=== PATIENT | male | born 1950 | race Caucasian/White ===

== ENCOUNTER 2020-07-19 07:44 | Day surgery (SDC) | payer MEDICARE ==
[~2020-07-19] VITALS: Ht 182.9 cm; Wt 101.5 kg
[~2020-07-19 07:44] MED LIST: ACET325 PO; MELO7.5 PO; Synthroid175 MCG PO
== END 2020-07-19 10:22 | disposition home or self-care (01) ==
LOC: ORSCSDS 07:44
PROVIDERS: Internal Medicine Gastroenterology
PROC: 0DBL8ZX Excision of Transverse Colon, Via Natural or Artificial Opening Endoscopic, Diagnostic (ICD-10-PCS; principal; 2020-07-19 09:00)
DX: Z12.11 Encounter for screening for malignant neoplasm of colon (principal); Z86.010 Personal history of colon polyps; D12.3 Benign neoplasm of transverse colon; K64.8 Other hemorrhoids; Z79.899 Other long term (current) drug therapy
CPT/HCPCS: 88305; J2704; J7120

== ENCOUNTER → 2022-06-12 | Outpatient (CLI) | payer MEDICARE ==
[2022-06-12 15:46] LABS: U Amphetamine Screen Not Detected; U Barbituate Screen Not Detected; U Benzodiazapine Screen Not Detected; U Buprenorphine Screen Not Detected; U Cannabinoids Screen Not Detected; U Cocaine Screen Not Detected; U Methadone Screen Not Detected; U Methamphetamine Screen Not Detected; U Opiates Screen DETECTED; U Oxycodone Screen DETECTED; U Phencyclidine Screen Not Detected; U Propoxyphene Screen Not Detected
== END | disposition home or self-care (01) ==
LOC: LAB SHORT 13:38 → LAB 13:38
PROVIDERS: Internal Medicine Hematology & Oncology
DX: Z51.81 Encounter for therapeutic drug level monitoring (principal); Z79.899 Other long term (current) drug therapy

== ENCOUNTER → 2022-07-14 | Outpatient (CLI) | payer MEDICARE ==
[2022-07-14 13:47] LABS: U Amphetamine Screen Not Detected; U Barbituate Screen Not Detected; U Benzodiazapine Screen Not Detected; U Buprenorphine Screen Not Detected; U Cannabinoids Screen DETECTED; U Cocaine Screen Not Detected; U Methadone Screen Not Detected; U Methamphetamine Screen Not Detected; U Opiates Screen DETECTED; U Oxycodone Screen DETECTED; U Phencyclidine Screen Not Detected; U Propoxyphene Screen Not Detected
[2022-07-14 18:57] LABS: Alanine Aminotransfer (ALT/SGP 21 U/L (12-78); Albumin, Blood 3.9 g/dL (3.4-5.0); Albumin/Globulin Ratio 1.7 (0.8-1.8); Alk Phos 69 U/L (50-136); Anion Gap 5 mmol/L (6-16); Aspartate Aminotrans (AST/SGOT 13 U/L (12-37); Bilirubin, Total 0.4 mg/dL (0.1-1.0); Blood Urea Nitrogen 17 mg/dL (8-24); Bun/Creatinine Ratio 21.7 (12.0-20.0); CO2, Blood 27 mmol/L (21-32); Calcium, Blood 8.8 mg/dL (8.5-10.1); Chloride, Blood 109 mmol/L (98-108); Creatinine, Blood 0.79 mg/dL (0.60-1.20); Globulin, Blood 2.3 g/dL (2.2-4.0); Glomerular Filtration Rate 96 (60-); Glucose, Blood 106 mg/dL (70-99); Phosphorus, Blood 3.4 mg/dL (2.5-4.9); Sodium, Blood 141 mmol/L (136-145); Thyroid Stimulating Hormone 0.028 uIU/mL (0.360-4.800); Thyroxine (T4) 11.7 ug/dL (4.5-12.1); Total Protein, Blood 6.2 g/dL (6.4-8.2)
== END | disposition home or self-care (01) ==
LOC: LAB SHORT 12:55
PROVIDERS: Internal Medicine Hematology & Oncology
DX: Z12.5 Encounter for screening for malignant neoplasm of prostate (principal); R63.4 Abnormal weight loss; Z85.850 Personal history of malignant neoplasm of thyroid; Z79.899 Other long term (current) drug therapy
CPT/HCPCS: 80053; 84100; 84436; 84443; G0103

== ENCOUNTER → 2022-08-14 | Outpatient (CLI) | payer OTHER ==
[2022-08-14 17:06] LABS: U Amphetamine Screen Not Detected; U Barbituate Screen Not Detected; U Benzodiazapine Screen Not Detected; U Buprenorphine Screen Not Detected; U Cannabinoids Screen DETECTED; U Cocaine Screen Not Detected; U Methadone Screen Not Detected; U Methamphetamine Screen Not Detected; U Opiates Screen DETECTED; U Oxycodone Screen Not Detected; U Phencyclidine Screen Not Detected; U Propoxyphene Screen Not Detected
== END | disposition home or self-care (01) ==
LOC: LAB SHORT 15:22 → LAB 15:22
PROVIDERS: Internal Medicine Hematology & Oncology
DX: Z51.81 Encounter for therapeutic drug level monitoring (principal); Z79.899 Other long term (current) drug therapy

== ENCOUNTER → 2022-10-12 | Outpatient (CLI) | payer OTHER ==
[2022-10-12 15:56] LABS: U Amphetamine Screen Not Detected; U Barbituate Screen Not Detected; U Benzodiazapine Screen Not Detected; U Buprenorphine Screen Not Detected; U Cannabinoids Screen Not Detected; U Cocaine Screen Not Detected; U Methadone Screen Not Detected; U Methamphetamine Screen Not Detected; U Opiates Screen Not Detected; U Oxycodone Screen DETECTED; U Phencyclidine Screen Not Detected; U Propoxyphene Screen Not Detected
== END | disposition home or self-care (01) ==
LOC: LAB 11:55 → LAB SHORT 11:55
PROVIDERS: Internal Medicine Hematology & Oncology
DX: Z51.81 Encounter for therapeutic drug level monitoring (principal); Z79.899 Other long term (current) drug therapy

== ENCOUNTER → 2022-11-11 | Outpatient (CLI) | payer OTHER ==
[2022-11-11 19:18] LABS: U Amphetamine Screen Not Detected; U Barbituate Screen Not Detected; U Benzodiazapine Screen Not Detected; U Buprenorphine Screen Not Detected; U Cannabinoids Screen Not Detected; U Cocaine Screen Not Detected; U Methadone Screen Not Detected; U Methamphetamine Screen Not Detected; U Opiates Screen DETECTED; U Oxycodone Screen Not Detected; U Phencyclidine Screen Not Detected; U Propoxyphene Screen Not Detected
== END | disposition home or self-care (01) ==
LOC: LAB 11:10 → LAB SHORT 11:10
PROVIDERS: Internal Medicine Hematology & Oncology
DX: Z51.81 Encounter for therapeutic drug level monitoring (principal); Z79.899 Other long term (current) drug therapy

== ENCOUNTER → 2023-01-14 | Outpatient (CLI) | payer OTHER ==
[2023-01-14 14:16] LABS: U Cannabinoids Screen DETECTED
[2023-01-14 14:17] LABS: U Amphetamine Screen Not Detected; U Barbituate Screen Not Detected; U Benzodiazapine Screen Not Detected; U Buprenorphine Screen Not Detected; U Cocaine Screen Not Detected; U Methadone Screen Not Detected; U Methamphetamine Screen Not Detected; U Opiates Screen DETECTED; U Oxycodone Screen DETECTED; U Phencyclidine Screen Not Detected; U Propoxyphene Screen Not Detected
[2023-01-17 16:08] LABS: CARBOXY-THC 28 (.)
== END | disposition home or self-care (01) ==
LOC: LAB 13:01 → LAB SHORT 13:01
PROVIDERS: Internal Medicine Hematology & Oncology
DX: Z51.81 Encounter for therapeutic drug level monitoring (principal); Z79.899 Other long term (current) drug therapy
CPT/HCPCS: G0480

== ENCOUNTER → 2023-02-11 | Outpatient (CLI) | payer OTHER ==
[2023-02-11 14:45] LABS: U Amphetamine Screen Not Detected; U Barbituate Screen Not Detected; U Benzodiazapine Screen Not Detected; U Buprenorphine Screen Not Detected; U Cannabinoids Screen DETECTED; U Cocaine Screen Not Detected; U Methadone Screen Not Detected; U Methamphetamine Screen Not Detected; U Opiates Screen DETECTED; U Oxycodone Screen Not Detected; U Phencyclidine Screen Not Detected; U Propoxyphene Screen Not Detected
[2023-02-20 12:12] LABS: 6-ACETYLMORPHINE Not Detected (.); CARBOXY-THC 51 (.)
== END ==
LOC: LAB 10:25 → LAB SHORT 10:25
PROVIDERS: Internal Medicine Hematology & Oncology
DX: Z51.81 Encounter for therapeutic drug level monitoring (principal); Z79.899 Other long term (current) drug therapy
CPT/HCPCS: G0480

== ENCOUNTER → 2023-06-02 | Outpatient (CLI) | payer OTHER ==
[2023-06-02 14:30] LABS: U Amphetamine Screen Not Detected; U Barbituate Screen Not Detected; U Benzodiazapine Screen Not Detected; U Buprenorphine Screen Not Detected; U Cannabinoids Screen Not Detected; U Cocaine Screen Not Detected; U Methadone Screen Not Detected; U Methamphetamine Screen Not Detected; U Opiates Screen DETECTED; U Oxycodone Screen Not Detected; U Phencyclidine Screen Not Detected
== END | disposition home or self-care (01) ==
LOC: LAB 13:03 → LAB SHORT 13:03
PROVIDERS: Internal Medicine Hematology & Oncology
DX: Z51.81 Encounter for therapeutic drug level monitoring (principal); Z79.899 Other long term (current) drug therapy
CPT/HCPCS: G0480

== ENCOUNTER → 2023-06-30 | Outpatient (CLI) | payer OTHER ==
[2023-06-30 15:47] LABS: U Amphetamine Screen Not Detected; U Barbituate Screen Not Detected; U Benzodiazapine Screen Not Detected; U Buprenorphine Screen Not Detected; U Cannabinoids Screen Not Detected; U Cocaine Screen Not Detected; U Methadone Screen Not Detected; U Methamphetamine Screen Not Detected; U Opiates Screen DETECTED; U Oxycodone Screen Not Detected; U Phencyclidine Screen Not Detected
== END | disposition home or self-care (01) ==
LOC: LAB 10:06 → LAB SHORT 10:06
PROVIDERS: Internal Medicine Hematology & Oncology
DX: Z51.81 Encounter for therapeutic drug level monitoring (principal); Z79.899 Other long term (current) drug therapy

== ENCOUNTER → 2023-07-28 | Outpatient (CLI) | payer OTHER ==
[2023-07-28 14:18] LABS: U Amphetamine Screen Not Detected; U Barbituate Screen Not Detected; U Benzodiazapine Screen Not Detected; U Cocaine Screen Not Detected; U Methamphetamine Screen Not Detected
[2023-07-28 14:19] LABS: U Buprenorphine Screen Not Detected; U Cannabinoids Screen DETECTED; U Methadone Screen Not Detected; U Opiates Screen DETECTED; U Oxycodone Screen Not Detected; U Phencyclidine Screen Not Detected
== END | disposition home or self-care (01) ==
LOC: LAB 12:54 → LAB SHORT 12:54
PROVIDERS: Internal Medicine Hematology & Oncology
DX: Z51.81 Encounter for therapeutic drug level monitoring (principal); Z79.899 Other long term (current) drug therapy

== ENCOUNTER → 2023-08-25 | Outpatient (CLI) | payer OTHER ==
[2023-08-25 14:38] LABS: U Cannabinoids Screen DETECTED; U Opiates Screen DETECTED
[2023-08-25 14:39] LABS: U Amphetamine Screen Not Detected; U Barbituate Screen Not Detected; U Benzodiazapine Screen Not Detected; U Buprenorphine Screen Not Detected; U Cocaine Screen Not Detected; U Methadone Screen Not Detected; U Methamphetamine Screen Not Detected; U Oxycodone Screen Not Detected; U Phencyclidine Screen Not Detected
== END ==
LOC: LAB 12:57 → LAB SHORT 12:57
PROVIDERS: Internal Medicine Hematology & Oncology
DX: M54.16 Radiculopathy, lumbar region (principal); Z79.899 Other long term (current) drug therapy

== ENCOUNTER → 2023-11-18 | Outpatient (CLI) | payer OTHER | LOC: LAB 09:53 → LAB SHORT 09:53 | DX: M51.36 Other intervertebral disc degeneration, lumbar region (principal); Z79.899 Other long term (current) drug therapy ==

== ENCOUNTER → 2024-01-18 | Outpatient (CLI) | payer OTHER ==
[2024-01-18 15:25] LABS: U Amphetamine Screen Not Detected; U Barbituate Screen Not Detected; U Benzodiazapine Screen Not Detected; U Buprenorphine Screen Not Detected; U Cannabinoids Screen Not Detected; U Cocaine Screen Not Detected; U Methadone Screen Not Detected; U Methamphetamine Screen Not Detected; U Opiates Screen DETECTED; U Oxycodone Screen Not Detected; U Phencyclidine Screen Not Detected
== END ==
LOC: LAB SHORT 14:42 → LAB 14:42
PROVIDERS: Internal Medicine Hematology & Oncology
DX: M54.16 Radiculopathy, lumbar region (principal); Z79.899 Other long term (current) drug therapy

== ENCOUNTER → 2024-03-16 | Outpatient (CLI) | payer OTHER ==
[2024-03-16 14:23] LABS: U Amphetamine Screen Not Detected; U Barbituate Screen Not Detected; U Benzodiazapine Screen Not Detected; U Buprenorphine Screen Not Detected; U Cannabinoids Screen Not Detected; U Cocaine Screen Not Detected; U Methadone Screen Not Detected; U Methamphetamine Screen Not Detected; U Opiates Screen DETECTED; U Oxycodone Screen Not Detected; U Phencyclidine Screen Not Detected
== END | disposition home or self-care (01) ==
LOC: LAB 09:32 → LAB SHORT 09:32
PROVIDERS: Internal Medicine Hematology & Oncology
DX: Z51.81 Encounter for therapeutic drug level monitoring (principal); Z79.899 Other long term (current) drug therapy

== ENCOUNTER → 2024-06-14 | Outpatient (CLI) | payer OTHER ==
[2024-06-14 15:20] LABS: U Amphetamine Screen Not Detected; U Barbituate Screen Not Detected; U Benzodiazapine Screen Not Detected; U Buprenorphine Screen Not Detected; U Cannabinoids Screen Not Detected; U Cocaine Screen Not Detected; U Methadone Screen Not Detected; U Methamphetamine Screen Not Detected; U Opiates Screen DETECTED; U Oxycodone Screen Not Detected; U Phencyclidine Screen Not Detected
== END | disposition home or self-care (01) ==
LOC: LAB SHORT 10:20 → LAB 10:20
PROVIDERS: Internal Medicine Hematology & Oncology
DX: Z51.81 Encounter for therapeutic drug level monitoring (principal); Z79.899 Other long term (current) drug therapy

== ENCOUNTER → 2024-07-20 | Outpatient (CLI) | payer OTHER ==
[2024-07-20 14:42] LABS: U Amphetamine Screen Not Detected; U Barbituate Screen Not Detected; U Benzodiazapine Screen Not Detected; U Buprenorphine Screen Not Detected; U Cannabinoids Screen Not Detected; U Cocaine Screen Not Detected; U Methadone Screen Not Detected; U Methamphetamine Screen Not Detected; U Opiates Screen DETECTED; U Oxycodone Screen DETECTED; U Phencyclidine Screen Not Detected
== END ==
LOC: LAB 10:15 → LAB SHORT 10:15
PROVIDERS: Internal Medicine Hematology & Oncology
DX: M54.16 Radiculopathy, lumbar region (principal); Z79.899 Other long term (current) drug therapy

== ENCOUNTER 2024-10-23 08:09 | Day surgery (SDC) | payer OTHER ==
[~2024-10-23] VITALS: Ht 182.9 cm; Wt 93.0 kg
[2024-10-23] VITALS (10 sets, daily range): BP systolic 116–135; BP diastolic 63–88
[~2024-10-23 08:09] MED LIST changes: +Norco 7.5-3251 EACH PO
[2024-10-23] MEDS ORDERED: Promethazine HCl 25 MG Tab PO PRN (08:35)
[2024-10-23] MEDS ORDERED: DiphenhydrAMINE HCL 25 MG Cap PO PRN (08:35)
[2024-10-23] MEDS ORDERED: Prochlorperazine Edisylate 10 mg Vial IV PRN (08:35)
[2024-10-23] MEDS ORDERED: OxyCODONE HCL 5 MG TAB PO PRN ×2 (08:35)
[2024-10-23] MEDS ORDERED: Magnesium Hydroxide Conc 10 ML UDC PO PRN (08:40)
[2024-10-23] MEDS ORDERED: Bisacodyl 10 MG Supp PR PRN (08:40)
[2024-10-23] MEDS ORDERED: Metoclopramide HCl 5MG / ML 2ML Vial IV PRN (08:40)
[2024-10-23] MEDS ORDERED: HYDROmorphone HCl/Pf 1MG SYR IV PRN ×3 (08:45→10:45)
[2024-10-23] MEDS ORDERED: Ondansetron HCl 2 MG / ML 2ML Vial IV PRN ×2 (08:45→10:50)
[2024-10-23] MEDS ORDERED: Lactated Ringer's 1,000 ML IV SCH ×2 (08:50→09:00)
[2024-10-23] MEDS ORDERED: CeFAZolin Sodium 2,000 MG in NS 100 ML IV SCH ×2 (08:55→18:00)
[2024-10-23] MEDS ORDERED: Chlorhexidine Mouth Care 15 ML UDC MT SCH (09:00)
[2024-10-23] MEDS ORDERED: OxyCODONE HCL 10 MG TABCR PO SCH (09:00)
[2024-10-23] MEDS ORDERED: Ropivacaine 0.5% HCl/Pf 123.125 MG,EPINEPHrine HCL 0.25 MG,Ketorolac Tromethamine 15 MG... INFIL SCH (09:00)
[2024-10-23] MEDS ORDERED: Acetaminophen 500 MG Tab PO SCH ×2 (09:00→16:00)
--- NOTE | 2024-10-23 09:00 | NUR ---
Ambulatory in Day Surgery WITH BY SELF. History, Chart, Medications and Allergies reviewed before start of procedure.Patient confirms NPO status and agrees with scheduled surgery. Pre-Op teaching done. Pt verbalizes understanding. Lungs clear T/O to Auscultation.
[2024-10-23] MEDS ORDERED: Tranexamic Acid 100 ML IV SCH (09:03)
[2024-10-23] MEDS ORDERED: FentaNYL Citrate 50 MCG/ML 2 ML Injection ONE (09:14)
[2024-10-23] MEDS ORDERED: Midazolam HCl 1MG / ML 2ML Vial ONE ×3 (09:15→11:31)
[2024-10-23] MEDS ORDERED: propofoL 40 ML IV ONE (10:23)
[2024-10-23] MEDS ORDERED: Phenylephrine HCl 100 MCG/ML-NS 10MLSYR (1MG/10ML) ONE (10:28)
[2024-10-23] MEDS ORDERED: Ondansetron HCl 2 MG / ML 2ML Vial ONE (10:28)
[2024-10-23] MEDS ORDERED: FentaNYL Citrate 50 MCG/ML 2 ML Injection IV PRN ×2 (10:50)
[2024-10-23] MEDS ORDERED: Labetalol HCL 5 MG/ML 4ML Injection (Single Dose) IV PRN (10:50)
[2024-10-23] MEDS ORDERED: ePHEDrine Sulfate 50 MG/ML 1ML Injection IV PRN (10:50)
[2024-10-23] MEDS ORDERED: FentaNYL Citrate 50 MCG/ML 5 ML Injection ONE (11:30)
[2024-10-23] MEDS ORDERED: Ketorolac Tromethamine 15mg Vial IV SCH (12:00)
[2024-10-23] MEDS ORDERED: Ketorolac Tromethamine 30mg Vial ONE (12:28)
--- NOTE | 2024-10-23 12:59 | NUR ---
ARRIVAL TO UNIT AFTER RECEIVING REPORT FROM SPA ASSISTANT MANAGER, PATIENT TRANSFERRED TO UNIT VIA BED AT APPROX 1245. PATIENT ALERT - COMMUNICATING NEEDS EFFECTIVELY. S/P R CAROLYN W/ SPINAL - REPORTS SENSATION, IS ABLE TO WIGGLE TOES. PPP. CAP REFILL <3 SECONDS. VSS. ON ROOM AIR, SATs >90%. DENIES PAIN. PRINEO DX C/D/I. DENIES N/V - TOLERATING PO INTAKE. CALL LIGHT IN REACH.
[2024-10-23] MEDS ORDERED: ACET500 PO (15:58)
[2024-10-23] MEDS ORDERED: DOCU100 PO (15:59)
[2024-10-23] MEDS ORDERED: ASPI81CH PO (16:00)
[2024-10-23] MEDS ORDERED: OXAYDO5 M1 PO (16:01)
--- NOTE | 2024-10-23 16:39 | NUR ---
DISCHARGE NOTE NO ACUTE CHANGES SINCE ARRIVAL TO UNIT. PATIENT REMAINS ALERT - COMMUNICATING NEEDS EFFECTIVEY. S/P R CAROLYN - AMBULATING WITH SBA FWW GB. WORKED WITH PHYSICAL THERAPY THIS AFTERNOON. VSS. PAIN MANAGED WITH PRESCRIBED THERAPY. TOLERATING PO INTAKE. VOIDING. PRINEO DX TO R HIP C/D/I. IV REMOVED. WRITTEN AND VERBAL EDUCATION PROVIDED - BOTH PATIENT AND SPOUSE STATE UNDERSTANDING. PERSONAL BELONGINGS WITH PATIENT. PATIENT TRANSFERRED TO PERSONAL VEHICLE VIA AT APPROX 1630.
[2024-10-23] MEDS ORDERED: Docusate Sodium 100 MG Cap PO SCH (21:00)
[2024-10-24] MEDS ORDERED: Aspirin 81 MG Chew PO SCH (09:00)
== END 2024-10-23 16:34 | disposition home or self-care (01) ==
LOC: ORSCMMR 08:09 → ORD 09:30 → ORSCMMR 09:30 → SURS 12:34 → ORSCMMR 16:34
PROVIDERS: Orthopaedic Surgery
PROC: 0SR90JA Replacement of Right Hip Joint with Synthetic Substitute, Uncemented, Open Approach (ICD-10-PCS; principal; 2024-10-23 09:30)
DX: M16.11 Unilateral primary osteoarthritis, right hip (principal); Z85.850 Personal history of malignant neoplasm of thyroid; Z79.899 Other long term (current) drug therapy; F17.220 Nicotine dependence, chewing tobacco, uncomplicated
CPT/HCPCS: 72170; 97110; 97116; 97162; A9270; C1776; J0171; J0690; J0735; J1885; J2250; J2371; J2405; J2704; J2795; J3010; J7120

== ENCOUNTER → 2025-04-12 | Outpatient (CLI) | payer OTHER ==
[~2025-04-12] MED LIST changes: +ACET500 PO; +ASPI81CH PO; +DOCU100 PO; +OXAYDO5 M1 PO
[2025-04-12 15:51] LABS: U Amphetamine Screen Not Detected; U Barbituate Screen Not Detected; U Benzodiazapine Screen Not Detected; U Buprenorphine Screen Not Detected; U Cannabinoids Screen Not Detected; U Cocaine Screen Not Detected; U Methadone Screen Not Detected; U Methamphetamine Screen Not Detected; U Opiates Screen DETECTED; U Oxycodone Screen Not Detected; U Phencyclidine Screen Not Detected
== END ==
LOC: LAB 13:29 → LAB SHORT 13:29
PROVIDERS: Internal Medicine Hematology & Oncology
DX: Z51.81 Encounter for therapeutic drug level monitoring (principal); Z79.899 Other long term (current) drug therapy; M54.16 Radiculopathy, lumbar region

== ENCOUNTER 2025-06-11 10:02 | Day surgery (SDC) | payer OTHER ==
[~2025-06-11] VITALS: Ht 182.9 cm; Wt 95.9 kg
[2025-06-11] VITALS (9 sets, daily range): BP systolic 107–151; BP diastolic 55–74
[~2025-06-11 10:02] MED LIST changes: +Norco 5-325 Ta1 EACH PO
[2025-06-11] MEDS ORDERED: CeFAZolin Sodium 2,000 MG in NS 100 ML IV SCH ×2 (10:20→21:00)
[2025-06-11] MEDS ORDERED: Chlorhexidine Mouth Care 15 ML UDC MT SCH (10:20)
[2025-06-11] MEDS ORDERED: Tranexamic Acid 100 ML IV SCH (10:20)
[2025-06-11] MEDS ORDERED: FLU VACC TS2025(65UP)/MF59C/PF 45 MCG/0.5 ML SYRINGE IM SCH (11:35)
[2025-06-11] MEDS ORDERED: Prochlorperazine Edisylate 10 mg Vial IV PRN (11:40)
[2025-06-11] MEDS ORDERED: Magnesium Hydroxide Conc 10 ML UDC PO PRN (11:40)
[2025-06-11] MEDS ORDERED: Metoclopramide HCl 5MG / ML 2ML Vial IV PRN ×2 (11:45→14:30)
[2025-06-11] MEDS ORDERED: Ondansetron HCl 2 MG / ML 2ML Vial IV PRN (11:45)
[2025-06-11] MEDS ORDERED: HYDROmorphone HCl/Pf 1MG SYR IV PRN ×3 (11:45→14:20)
--- NOTE | 2025-06-11 11:46 | NUR ---
Pre-Op teaching done. Pt verbalizes understanding. Ambulatory in Day Surgery. History, Chart, Medications and Allergies reviewed before start of procedure. Patient confirms NPO status and agrees with scheduled surgery. Patient States Post-Procedure ride home has been arranged.
[2025-06-11] MEDS ORDERED: Midazolam HCl 1MG / ML 2ML Vial ONE (13:15)
[2025-06-11] MEDS ORDERED: FentaNYL Citrate 50 MCG/ML 2 ML Injection ONE (13:16)
[2025-06-11] MEDS ORDERED: Dexamethasone Sod Phos 10 MG/ML 1ML VIAL ONE (14:05)
[2025-06-11] MEDS ORDERED: Ondansetron HCl 2 MG / ML 2ML Vial ONE (14:05)
[2025-06-11] MEDS ORDERED: Phenylephrine HCl 100 MCG/ML-NS 10MLSYR (1MG/10ML) ONE (14:09)
[2025-06-11] MEDS ORDERED: FentaNYL Citrate 50 MCG/ML 2 ML Injection IV PRN ×2 (14:20)
[2025-06-11] MEDS ORDERED: Ketorolac Tromethamine 15mg Vial IV SCH (18:00)
--- NOTE | 2025-06-11 18:40 | NUR ---
ASSUMED CARE OF PT @ 1605. AXO4. VSS. PRINEO DRESSING CDI. ICE PACK IN PLACE. SPINAL EFFECTS LESSENING NOW. WAS ABLE TO STAND WITH PHYSICL THERAPY BUT STAYING OVERNIGHT DUE TO RESIDUAL NUMBNESS AND WANTING TO WORK WITH PHYSICAL THERAPY IN THE AM. IV FLUIDS X 1L INFUSED. PT SITTING UP IN CHAIR CURRENTLY - EATING DINNER. DAUGHTER IN ROOM CURRENTLY WITH PT.
[2025-06-12 00:01] VITALS: BP 108/66
--- NOTE | 2025-06-12 05:04 | NUR ---
EARLY CHILDHOOD DIRECTOR SUMMARY PT IS POD 0 FOR L CAROLYN. PT AAOX4 AND PLEASANT. HAS BEEN UP TO THE BATHROOM SEVERAL TIMES TONIGHT AND HAS DONE WELL AMBULATING WITH FWW. PAIN MANAGED WITH OXYCODONE PER SEP. HIP DRESSING C/D/I. VSS, WCTM.
[2025-06-12 05:13] LABS: BASOPHILS ABSOLUTE AUTO 0.03 K/mm3 (0.00-0.23); BASOPHILS PERCENT AUTO 0 % (0-2); EOSINOPHILS ABSOLUTE AUTO 0.01 K/mm3 (0.00-0.68); EOSINOPHILS PERCENT AUTO 0 % (0-6); Hematocrit 35.8 % (37.0-53.0); Hemoglobin 11.9 g/dL (13.5-17.5); IMMATURE GRAN ABSOLUTE AUTO 0.07 K/mm3 (0.00-0.10); IMMATURE GRAN PERCENT AUTO 0 % (0-1); LYMPHOCYTES ABSOLUTE AUTO 1.37 K/mm3 (0.84-5.20); LYMPHOCYTES PERCENT AUTO 8 % (21-46); MONOCYTES ABSOLUTE AUTO 1.88 K/mm3 (0.16-1.47); MONOCYTES PERCENT AUTO 11 % (4-13); Mean Corpuscular HGB Conc 33.2 g/dL (31.5-36.5); Mean Corpuscular Volume 86 fL (80-100); NEUTROPHILS ABSOLUTE AUTO 13.10 K/mm3 (1.96-9.15); NEUTROPHILS PERCENT AUTO 80 % (41-73); NRBC ABSOLUTE 0.00 K/mm3 (0.00-0.02); NRBC Auto 0.0 /100 WBC (0.0-0.2); Platelet Count 185 K/mm3 (150-400); RDW Coefficient Variation 14.1 % (11.7-14.2); RDW Standard Deviation 44.0 fL (35.1-46.3)
[2025-06-12 06:00] VITALS: BP 118/63
[2025-06-12 06:53] LABS: Anion Gap 8.0 mmol/L (3-11); Blood Urea Nitrogen 18.0 mg/dL (8-24); CO2, Blood 25.0 mmol/L (21-32); Calcium, Blood 8.0 mg/dL (8.5-10.1); Chloride, Blood 109.0 mmol/L (98-108); Creatinine, Blood 0.74 mg/dL (0.60-1.20); Glucose, Blood 144.0 mg/dL (70-99); Magnesium, Blood 2.1 mg/dL (1.6-2.4); Potassium, Blood 4.1 mmol/L (3.5-5.5); Sodium, Blood 138.0 mmol/L (136-145)
[2025-06-12 07:21] VITALS: BP 115/58
[2025-06-12] MEDS ORDERED: ACET500 PO (07:33)
[2025-06-12] MEDS ORDERED: ASPI81CH PO (07:33)
[2025-06-12] MEDS ORDERED: DOCU100 PO (07:34)
[2025-06-12] MEDS ORDERED: OXYC5 PO (07:34)
--- NOTE | 2025-06-12 09:27 | NUR ---
DC'D @3518 ASSUMED CARE OF PT @0700. VSS. AXO4. PAIN MEDS PER EMAR. PRINEO DRESSING TO L HIP CDI- PRN EXTRA AQUACEL PROVIDED TO PT FOR DC. IV PULLED. PT TOELRATED PO INTAKE. WORKED WITH PHYSICAL THERAPY- TOLERATED WELL. PT WANTING TO DC. VOIDED TODAY. DC INSTRUCTIONS PROVIDED TO PT AND DAUGHTER. ALL BELONGINGS WITH PT. PT WHEELED OUT OF ROOM AND DC'D @0425.
== END 2025-06-12 09:25 | disposition home or self-care (01) ==
LOC: ORSCMMR 10:02 → ORD 11:30 → ORSCMMR 11:30 → SURS 15:59 → ORSCMMR 06-12 09:25
PROVIDERS: Orthopaedic Surgery
PROC: 0SRB0JA Replacement of Left Hip Joint with Synthetic Substitute, Uncemented, Open Approach (ICD-10-PCS; principal; 2025-06-11 11:30)
DX: M16.12 Unilateral primary osteoarthritis, left hip (principal); Z79.899 Other long term (current) drug therapy; Z85.850 Personal history of malignant neoplasm of thyroid; Z85.830 Personal history of malignant neoplasm of bone; Z85.89 Personal history of malignant neoplasm of other organs and systems; F17.220 Nicotine dependence, chewing tobacco, uncomplicated
CPT/HCPCS: 36415; 72170; 80048; 83735; 85025; 94762; 97110; 97116-CQ; 97161; 97530; 97530-CQ; A9270; C1776; J0166; J0690; J0735; J1100; J1885; J2250; J2371; J2405; J2704; J2795; J3010; J7120